=== PATIENT | male | born 1940 | race Caucasian/White ===

== ENCOUNTER 2017-08-27 14:52 | Inpatient (IN) | payer MEDICARE, BC ==
[~2017-08-27] VITALS: Ht 177.8 cm; Wt 95.5 kg
[~2017-08-27 14:52] MED LIST: ALBU2.5V7 NEB; ASPI-1053 PO; CHLO25TA2 PO; CITA40TA22 PO; GUAI100L97 PO; IRBE150T51 PO; NITR0.4T51 SL; OMEP20CA10 PO; ROSU40TA PO
[2017-08-27] MEDS ORDERED: furosemide 40mg/4ml inj IV ONE (15:05)
[2017-08-27 15:16] LABS: ABG BASE EXCESS 2.7 mmol/L (-2.0-3.0); ABG HCO3 26.5 mmol/L (22.0-26.0); ABG OXYGEN SATURATION 97.3 % (95-98); ABG PCO2 (T) 37.9 mmHg (35.0-48.0); ABG PH (T) 7.462 (7.350-7.450); ABG PO2 (T) 98.6 mmHg (83-108); FCOHb 0.6 % (0.5-1.5); FLOW 3 L/min; FMetHb 0.2 % (0.3-1.12); FO2Hb 96.5 % (94-100); RESPIRATORY RATE (OBSERVED) 27 b/min; TOTAL HEMOGLOBIN 13.9 G/dl (14.0-18.0)
[2017-08-27] MEDS ORDERED: CELE-193 PO (15:32)
[2017-08-27 15:34] LABS: BASOPHILS % (AUTO) 0.3 % (0-1); EOSINOPHILS # (AUTO) 0.2 X10'3 (0-0.9); EOSINOPHILS % (AUTO) 1.5 % (0-6); HEMATOCRIT 39.9 % (42.0-52.0); HEMOGLOBIN 13.4 g/dl (14.0-17.9); LYMPHOCYTES # (AUTO) 1.9 X10'3 (1.1-4.8); LYMPHOCYTES % (AUTO) 14.4 % (21-51); MEAN CORPUSCULAR HGB CONC 33.5 % (33.0-36.5); MEAN CORPUSCULAR VOLUME 92.6 FL (78-98); MONOCYTES # (AUTO) 1.3 X10'3 (0-0.9); MONOCYTES % (AUTO) 9.8 % (2-12); NEUTROPHILS # (AUTO) 9.9 X10'3 (1.8-7.7); PLATELET COUNT 316 X10'3 (140-440); RED BLOOD COUNT 4.31 X10'6 (4.70-6.10); RED CELL DISTRIBUTION WIDTH 14.7 % (11.5-14.5); WHITE BLOOD COUNT 13.4 X10'3 (4.5-11.0)
[2017-08-27] MEDS ORDERED: azithromycin/NS 500mg/250ml 250 ML IV ONE (15:50)
[2017-08-27] MEDS ORDERED: CefTRIAXone 2gm/NS 100ml IVPB 100 ML IV ONE (15:50)
[2017-08-27 15:56] LABS: ALANINE AMINOTRANSFERASE 42 U/L (12-78); ALBUMIN 2.9 G/DL (3.4-5.0); ALBUMIN/GLOBULIN RATIO 0.7 (1.1-1.5); ALKALINE PHOSPHATASE 78 IU/L (46-116); ANION GAP 8 (8-16); ASPARTATE AMINO TRANSFERASE 41 U/L (10-37); BILIRUBIN,TOTAL 0.4 MG/DL (0.1-1.0); BLOOD UREA NITROGEN 26 MG/DL (7-18); BUN/CREATININE RATIO 16.3 (5.4-32.0); CALCIUM 9.4 MG/DL (8.5-10.1); CHLORIDE 102 MMOL/L (99-107); GLUCOSE 170 MG/DL (70-104); POTASSIUM 3.4 MMOL/L (3.5-5.1); SODIUM 140 MMOL/L (135-145); TOTAL CARBON DIOXIDE 29.8 MMOL/L (24-32); TOTAL PROTEIN 7.3 G/DL (6.4-8.2); eGFR 42 ML/MIN
[2017-08-27] MEDS ORDERED: magnesium hydroxide 30ml (MOM) UD suspension PO PRN (16:45)
[2017-08-27] MEDS ORDERED: potassium Cl 40MEQ/NS 500ml 500 ML IV PRN (16:45)
[2017-08-27] MEDS ORDERED: ondansetron/PF 4mg/2ml inj IV PRN (16:45)
[2017-08-27] MEDS ORDERED: magnesium 2GM in 50ml NS 50 ML IV PRN (16:45)
[2017-08-27] MEDS ORDERED: magnesium Cl slow-release 64mg tablet PO PRN (16:45)
[2017-08-27] MEDS ORDERED: acetaminophen 325mg tablet PO PRN (16:45)
[2017-08-27] MEDS ORDERED: ipratropium/albuterol 3ml nebule NEB PRN (16:45)
[2017-08-27] MEDS: K and/or MAG REPLACEMENT MC SCH (16:45)
[2017-08-27] MEDS ORDERED: magnesium 4gm in 100ml NS 100 ML IV PRN (16:45)
[2017-08-27] MEDS ORDERED: potassium Cl 20 mEq SR tablet PO PRN (16:45)
[2017-08-27] MEDS ORDERED: mag hydrox/Alum hydrox/simeth 30ml oral suspension PO PRN (16:45)
[2017-08-27 17:25] LABS: ABG BASE EXCESS 5.3 mmol/L (-2.0-3.0); ABG OXYGEN SATURATION 95.3 % (95-98); ABG PCO2 (T) 39.9 mmHg (35.0-48.0); ABG PO2 (T) 75.2 mmHg (83-108); ALLEN'S TEST Positive; FCOHb 0.6 % (0.5-1.5); FLOW 1 L/min; FMetHb 0.1 % (0.3-1.12); FO2Hb 94.6 % (94-100); PATIENT TEMPERATURE 37.3; TOTAL HEMOGLOBIN 14.5 G/dl (14.0-18.0)
[2017-08-27] MEDS ORDERED: LORazepam 2 mg/ml vial IV ONE (17:50)
[2017-08-27] MEDS: normal saline 1000ml 1,000 ML IV SCH (19:19)
[2017-08-27] MEDS: potassium Cl 40MEQ/NS 500ml 500 ML IV PRN (19:53)
[2017-08-27] MEDS: ipratropium/albuterol 3ml nebule NEB SCH ×2 (20:16→23:00)
[2017-08-28] MEDS: ipratropium/albuterol 3ml nebule NEB SCH ×4 (01:00→20:45)
[2017-08-28] MEDS: normal saline 1000ml 1,000 ML IV SCH ×2 (05:12→15:31)
[2017-08-28 05:56] LABS: BASOPHILS # (AUTO) 0.1 X10'3 (0-0.2); BASOPHILS % (AUTO) 0.4 % (0-1); EOSINOPHILS # (AUTO) 0.1 X10'3 (0-0.9); HEMATOCRIT 37.8 % (42.0-52.0); HEMOGLOBIN 12.9 g/dl (14.0-17.9); LYMPHOCYTES # (AUTO) 1.4 X10'3 (1.1-4.8); LYMPHOCYTES % (AUTO) 11.8 % (21-51); MEAN CORPUSCULAR HEMOGLOBIN 31.3 PG (27.0-31.0); MEAN CORPUSCULAR HGB CONC 34.2 % (33.0-36.5); MEAN CORPUSCULAR VOLUME 91.7 FL (78-98); MONOCYTES # (AUTO) 1.5 X10'3 (0-0.9); NEUTROPHILS # (AUTO) 8.7 X10'3 (1.8-7.7); NEUTROPHILS % (AUTO) 73.8 % (42-75); PLATELET COUNT 318 X10'3 (140-440); RED BLOOD COUNT 4.12 X10'6 (4.70-6.10); RED CELL DISTRIBUTION WIDTH 14.9 % (11.5-14.5); WHITE BLOOD COUNT 11.8 X10'3 (4.5-11.0)
[2017-08-28 06:26] LABS: ALANINE AMINOTRANSFERASE 44 U/L (12-78); ALBUMIN 2.8 G/DL (3.4-5.0); ALBUMIN/GLOBULIN RATIO 0.7 (1.1-1.5); ALKALINE PHOSPHATASE 64 IU/L (46-116); ANION GAP 9 (8-16); ASPARTATE AMINO TRANSFERASE 46 U/L (10-37); BILIRUBIN,TOTAL 0.3 MG/DL (0.1-1.0); BLOOD UREA NITROGEN 25 MG/DL (7-18); BUN/CREATININE RATIO 15.7 (5.4-32.0); CALCIUM 9.2 MG/DL (8.5-10.1); CHLORIDE 104 MMOL/L (99-107); CREATININE 1.59 MG/DL (0.60-1.10); GLUCOSE 121 MG/DL (70-104); MAGNESIUM 1.7 MG/DL (1.5-2.4); POTASSIUM 3.2 MMOL/L (3.5-5.1); SODIUM 145 MMOL/L (135-145); TOTAL CARBON DIOXIDE 32.3 MMOL/L (24-32); TOTAL PROTEIN 7.1 G/DL (6.4-8.2); eGFR 42 ML/MIN
[2017-08-28 08:00] VITALS: BP 137/71
[2017-08-28] MEDS: K and/or MAG REPLACEMENT MC SCH (08:00)
[2017-08-28] MEDS: azithromycin 250mg tablet PO SCH (08:57)
[2017-08-28] MEDS: enoxaparin 40mg/0.4ml syringe SQ SCH (08:58)
[2017-08-28] MEDS: cefTRIAXone 1g/NS 100ml IVPB 100 ML IV SCH (09:36)
[2017-08-28] MEDS ORDERED: hydrocortisone 1% cream 28gm TP PRN (10:50)
[2017-08-28 11:00] VITALS: BP 136/84
[2017-08-28] MEDS: potassium Cl 40MEQ/NS 500ml 500 ML IV PRN (12:33)
[2017-08-28 15:00] VITALS: BP 146/81
[2017-08-28] MEDS ORDERED: albuterol 2.5 MG/3 ML nebule NEB PRN (15:15)
[2017-08-28 16:45] LABS: ABG BASE EXCESS 2.4 mmol/L (-2.0-3.0); ABG HCO3 26.9 mmol/L (22.0-26.0); ABG OXYGEN SATURATION 96.7 % (95-98); ABG PCO2 (T) 41.2 mmHg (35.0-48.0); ABG PH (T) 7.432 (7.350-7.450); ABG PO2 (T) 91.4 mmHg (83-108); ALLEN'S TEST Positive; FLOW 3 L/min; FMetHb 0.2 % (0.3-1.12); FO2Hb 96.5 % (94-100); TOTAL HEMOGLOBIN 13.1 G/dl (14.0-18.0)
[2017-08-28 19:00] VITALS: BP 128/83
[2017-08-28] MEDS: nystatin 15 GM powder TP SCH (20:26)
[2017-08-28] MEDS: atorvastatin 20mg tablet PO SCH (20:27)
[2017-08-28] MEDS: lactobacillus rhamnosus 10,000 MMU CELLS/CAPSULE PO SCH (20:27)
[2017-08-28] MEDS: citalopram 20mg tablet PO SCH (20:27)
[2017-08-28] MEDS: aspirin 81mg tab.chew PO SCH (20:27)
[2017-08-28] MEDS ORDERED: CITALOPRAM HYDROBROMIDE PO SCH (21:00)
[2017-08-28] MEDS ORDERED: ROSUVASTATIN CALCIUM PO SCH (21:00)
[2017-08-28 23:00] VITALS: BP 149/71
[2017-08-29] MEDS ORDERED: LORazepam 2 mg/ml vial IV PRN (00:35)
[2017-08-29] MEDS ORDERED: acetaminophen 325mg tablet PO PRN (00:35)
[2017-08-29 03:00] VITALS: BP 156/70
[2017-08-29 06:00] VITALS: BP 122/75
[2017-08-29 07:21] LABS: BASOPHILS % (AUTO) 0.4 % (0-1); EOSINOPHILS # (AUTO) 0.5 X10'3 (0-0.9); EOSINOPHILS % (AUTO) 4.9 % (0-6); HEMATOCRIT 33.7 % (42.0-52.0); HEMOGLOBIN 11.5 g/dl (14.0-17.9); LYMPHOCYTES # (AUTO) 1.4 X10'3 (1.1-4.8); LYMPHOCYTES % (AUTO) 15.7 % (21-51); MEAN CORPUSCULAR HEMOGLOBIN 31.4 PG (27.0-31.0); MEAN CORPUSCULAR VOLUME 92.2 FL (78-98); MEAN PLATELET VOLUME 7.3 FL (7.4-10.4); MONOCYTES # (AUTO) 1.1 X10'3 (0-0.9); MONOCYTES % (AUTO) 12.3 % (2-12); NEUTROPHILS # (AUTO) 6.1 X10'3 (1.8-7.7); NEUTROPHILS % (AUTO) 66.7 % (42-75); PLATELET COUNT 305 X10'3 (140-440); RED BLOOD COUNT 3.66 X10'6 (4.70-6.10); RED CELL DISTRIBUTION WIDTH 14.8 % (11.5-14.5); WHITE BLOOD COUNT 9.2 X10'3 (4.5-11.0)
[2017-08-29 07:31] LABS: ALANINE AMINOTRANSFERASE 76 U/L (12-78); ALBUMIN 2.5 G/DL (3.4-5.0); ALBUMIN/GLOBULIN RATIO 0.7 (1.1-1.5); ALKALINE PHOSPHATASE 60 IU/L (46-116); ANION GAP 6 (8-16); ASPARTATE AMINO TRANSFERASE 77 U/L (10-37); BILIRUBIN,TOTAL 0.3 MG/DL (0.1-1.0); BLOOD UREA NITROGEN 24 MG/DL (7-18); BUN/CREATININE RATIO 15.4 (5.4-32.0); CALCIUM 9.1 MG/DL (8.5-10.1); CHLORIDE 105 MMOL/L (99-107); CREATININE 1.56 MG/DL (0.60-1.10); GLUCOSE 113 MG/DL (70-104); MAGNESIUM 1.6 MG/DL (1.5-2.4); POTASSIUM 3.1 MMOL/L (3.5-5.1); SODIUM 144 MMOL/L (135-145); TOTAL PROTEIN 6.3 G/DL (6.4-8.2); eGFR 43 ML/MIN
[2017-08-29] MEDS: cefTRIAXone 1g/NS 100ml IVPB 100 ML IV SCH (07:56)
[2017-08-29] MEDS: lactobacillus rhamnosus 10,000 MMU CELLS/CAPSULE PO SCH ×2 (07:56→20:54)
[2017-08-29] MEDS: azithromycin 250mg tablet PO SCH (07:57)
[2017-08-29] MEDS: enoxaparin 40mg/0.4ml syringe SQ SCH (07:57)
[2017-08-29] MEDS: pantoprazole 40mg Tablet.DR PO SCH (07:57)
[2017-08-29] MEDS: nystatin 15 GM powder TP SCH ×3 (07:58→21:05)
[2017-08-29] MEDS: chlorthalidone 25mg tablet PO SCH (07:58)
[2017-08-29] MEDS ORDERED: non-formulary drug (Omeprazole 1 CAP) PO SCH (08:00)
[2017-08-29] MEDS: ipratropium/albuterol 3ml nebule NEB SCH ×4 (08:19→20:19)
[2017-08-29] MEDS: K and/or MAG REPLACEMENT MC SCH (09:48)
[2017-08-29] MEDS: potassium Cl 20 mEq SR tablet PO PRN ×3 (09:48→22:21)
[2017-08-29 11:00] VITALS: BP 137/71
[2017-08-29 15:00] VITALS: BP 126/64
[2017-08-29] MEDS: normal saline 1000ml 1,000 ML IV SCH (17:10)
[2017-08-29 19:00] VITALS: BP 141/82
[2017-08-29] MEDS ORDERED: temazepam 15mg capsule PO ONE (20:35)
[2017-08-29] MEDS: citalopram 20mg tablet PO SCH (20:53)
[2017-08-29] MEDS: atorvastatin 20mg tablet PO SCH (20:53)
[2017-08-29] MEDS: aspirin 81mg tab.chew PO SCH (21:05)
[2017-08-29 23:00] VITALS: BP 136/70
[2017-08-30] MEDS: ipratropium/albuterol 3ml nebule NEB SCH ×5 (00:14→14:16)
[2017-08-30 03:00] VITALS: BP 125/67
[2017-08-30 06:35] VITALS: BP 124/70
[2017-08-30 06:37] LABS: BASOPHILS # (AUTO) 0.1 X10'3 (0-0.2); BASOPHILS % (AUTO) 0.7 % (0-1); EOSINOPHILS # (AUTO) 0.4 X10'3 (0-0.9); EOSINOPHILS % (AUTO) 4.9 % (0-6); HEMATOCRIT 36.3 % (42.0-52.0); HEMOGLOBIN 12.4 g/dl (14.0-17.9); LYMPHOCYTES # (AUTO) 1.4 X10'3 (1.1-4.8); LYMPHOCYTES % (AUTO) 15.7 % (21-51); MEAN CORPUSCULAR HEMOGLOBIN 31.4 PG (27.0-31.0); MEAN CORPUSCULAR HGB CONC 34.2 % (33.0-36.5); MEAN CORPUSCULAR VOLUME 92.1 FL (78-98); MEAN PLATELET VOLUME 7.1 FL (7.4-10.4); MONOCYTES % (AUTO) 11.1 % (2-12); NEUTROPHILS # (AUTO) 5.8 X10'3 (1.8-7.7); NEUTROPHILS % (AUTO) 67.6 % (42-75); PLATELET COUNT 310 X10'3 (140-440); RED BLOOD COUNT 3.94 X10'6 (4.70-6.10); WHITE BLOOD COUNT 8.6 X10'3 (4.5-11.0)
[2017-08-30 07:09] LABS: ALANINE AMINOTRANSFERASE 86 U/L (12-78); ALBUMIN 2.5 G/DL (3.4-5.0); ALBUMIN/GLOBULIN RATIO 0.7 (1.1-1.5); ALKALINE PHOSPHATASE 62 IU/L (46-116); ANION GAP 8 (8-16); ASPARTATE AMINO TRANSFERASE 72 U/L (10-37); BILIRUBIN,TOTAL 0.4 MG/DL (0.1-1.0); BLOOD UREA NITROGEN 18 MG/DL (7-18); BUN/CREATININE RATIO 14.2 (5.4-32.0); CALCIUM 9.6 MG/DL (8.5-10.1); CHLORIDE 103 MMOL/L (99-107); CREATININE 1.27 MG/DL (0.60-1.10); GLUCOSE 103 MG/DL (70-104); MAGNESIUM 1.4 MG/DL (1.5-2.4); POTASSIUM 3.5 MMOL/L (3.5-5.1); SODIUM 142 MMOL/L (135-145); TOTAL CARBON DIOXIDE 31.3 MMOL/L (24-32); TOTAL PROTEIN 6.3 G/DL (6.4-8.2); eGFR 55 ML/MIN
[2017-08-30] MEDS ORDERED: CefTRIAXone/D5W-Rocephin 1gm 50 ML IV SCH (08:00)
[2017-08-30] MEDS: lactobacillus rhamnosus 10,000 MMU CELLS/CAPSULE PO SCH (09:47)
[2017-08-30] MEDS: chlorthalidone 25mg tablet PO SCH (09:47)
[2017-08-30] MEDS: pantoprazole 40mg Tablet.DR PO SCH (09:47)
[2017-08-30] MEDS: enoxaparin 40mg/0.4ml syringe SQ SCH (09:48)
[2017-08-30] MEDS: azithromycin 250mg tablet PO SCH (09:48)
[2017-08-30] MEDS: normal saline 1000ml 1,000 ML IV SCH (09:56)
[2017-08-30] MEDS: nystatin 15 GM powder TP SCH (10:01)
[2017-08-30 11:00] VITALS: BP 123/72
[2017-08-30] MEDS ORDERED: AZI25OT PO (14:08)
[2017-08-30 14:16] LABS: ABG BASE EXCESS 4.4 mmol/L (-2.0-3.0); ABG HCO3 28.9 mmol/L (22.0-26.0); ABG OXYGEN SATURATION 96.5 % (95-98); ABG PCO2 (T) 42.7 mmHg (35.0-48.0); ABG PH (T) 7.448 (7.350-7.450); ABG PO2 (T) 85.9 mmHg (83-108); ALLEN'S TEST Positive; FCOHb 0.2 % (0.5-1.5); FLOW 2 L/min; FMetHb 0.1 % (0.3-1.12); FO2Hb 96.2 % (94-100); RESPIRATORY RATE (OBSERVED) 20 b/min; TOTAL HEMOGLOBIN 13.3 G/dl (14.0-18.0)
[2017-08-30 15:00] VITALS: BP 135/62
[2017-08-31] MEDS ORDERED: CefTRIAXone inj 1,000 MG in normal saline 100ml IV soln 100 ML IV SCH (08:00)
== END 2017-08-30 16:30 | disposition home or self-care (01) | DRG 871 ==
LOC: ER 14:52 → ED HOLD 16:44 → PCU 3S 08-28 08:00
PROVIDERS: ADMIT Family Medicine; ATTEND Internal Medicine
PROC: 5A09357 Assistance with Respiratory Ventilation, Less than 24 Consecutive Hours, Continuous Positive Airway Pressure (ICD-10-PCS; principal; 2017-08-27)
DX: A41.9 Sepsis, unspecified organism (principal); J96.01 Acute respiratory failure with hypoxia; G93.41 Metabolic encephalopathy; J18.1 Lobar pneumonia, unspecified organism; I13.0 Hypertensive heart and chronic kidney disease with heart failure and stage 1 through stage 4 chronic kidney disease, or unspecified chronic kidney disease; S22.42XA Multiple fractures of ribs, left side, initial encounter for closed fracture; I50.30 Unspecified diastolic (congestive) heart failure; J44.0 Chronic obstructive pulmonary disease with (acute) lower respiratory infection; Z99.81 Dependence on supplemental oxygen; J44.1 Chronic obstructive pulmonary disease with (acute) exacerbation; F41.9 Anxiety disorder, unspecified; F03.90 Unspecified dementia, unspecified severity, without behavioral disturbance, psychotic disturbance, mood disturbance, and anxiety; N18.9 Chronic kidney disease, unspecified; E78.5 Hyperlipidemia, unspecified; E87.6 Hypokalemia; F32.9 Major depressive disorder, single episode, unspecified; I25.10 Atherosclerotic heart disease of native coronary artery without angina pectoris; N40.0 Benign prostatic hyperplasia without lower urinary tract symptoms; Z95.1 Presence of aortocoronary bypass graft; Z88.5 Allergy status to narcotic agent; Z79.899 Other long term (current) drug therapy; Z87.891 Personal history of nicotine dependence; Z82.49 Family history of ischemic heart disease and other diseases of the circulatory system; Z83.3 Family history of diabetes mellitus; Z81.8 Family history of other mental and behavioral disorders; Z84.89 Family history of other specified conditions; Y92.89 Other specified places as the place of occurrence of the external cause
CPT/HCPCS: 36415; 36600; 71045; 80053; 82803; 83605; 83735; 83880; 84145; 85018; 85025; 87040; 87502; 87503; 93005; 93306; 94640; 94660; 94760; 96365; 96375; 99291; A6213; A6250; J0456; J0696; J1650; J1940; J2060; J3480; J7030

== ENCOUNTER 2018-05-23 14:48 | Inpatient (IN) | payer MEDICARE, BC ==
[~2018-05-23] VITALS: Ht 185.4 cm; Wt 91.5 kg
[~2018-05-23 14:48] MED LIST changes: +AZI25OT PO; -GUAI100L97 PO; -IRBE150T51 PO
[2018-05-23 15:39] LABS: BASOPHILS % (AUTO) 0 % (0-1); EOSINOPHILS % (AUTO) 0.1 % (0-6); HEMATOCRIT 46.1 % (42.0-52.0); HEMOGLOBIN 15.1 g/dl (14.0-17.9); LYMPHOCYTES # (AUTO) 0.5 X10'3 (1.1-4.8); LYMPHOCYTES % (AUTO) 2.6 % (21-51); MEAN CORPUSCULAR HEMOGLOBIN 31.1 PG (27.0-31.0); MEAN CORPUSCULAR HGB CONC 32.8 % (33.0-36.5); MEAN CORPUSCULAR VOLUME 94.6 FL (78-98); MEAN PLATELET VOLUME 6.4 FL (7.4-10.4); MONOCYTES # (AUTO) 0.1 X10'3 (0-0.9); MONOCYTES % (AUTO) 0.4 % (2-12); NEUTROPHILS # (AUTO) 17.9 X10'3 (1.8-7.7); NEUTROPHILS % (AUTO) 96.9 % (42-75); PLATELET COUNT 438 X10'3 (140-440); RED BLOOD COUNT 4.87 X10'6 (4.70-6.10); RED CELL DISTRIBUTION WIDTH 14.1 % (11.5-14.5); WHITE BLOOD COUNT 18.5 X10'3 (4.5-11.0)
[2018-05-23] MEDS ORDERED: normal saline 1000ML IV soln IV ONE (15:45)
[2018-05-23] MEDS ORDERED: levoFLOXACIN-Levaquin 750MG/D5 150 ML IV ONE (15:50)
[2018-05-23] MEDS ORDERED: acetaminophen 325mg rectal suppository RC ONE (15:55)
[2018-05-23 16:01] LABS: PARTIAL THROMBOPLASTIN TIME 26 SECONDS (22-32); PROTHROMBIN TIME 10.3 SECONDS (9.0-12.0)
[2018-05-23 16:08] LABS: ALANINE AMINOTRANSFERASE 25 U/L (12-78); ALBUMIN 3.1 G/DL (3.4-5.0); ALBUMIN/GLOBULIN RATIO 0.7 (1.1-1.5); ALKALINE PHOSPHATASE 80 IU/L (46-116); ANION GAP 11 (8-16); ASPARTATE AMINO TRANSFERASE 27 U/L (10-37); BILIRUBIN,TOTAL 0.5 MG/DL (0.1-1.0); BLOOD UREA NITROGEN 19 MG/DL (7-18); BUN/CREATININE RATIO 12.9 (5.4-32.0); CALCIUM 9.9 MG/DL (8.5-10.1); CHLORIDE 96 MMOL/L (99-107); CREATININE 1.47 MG/DL (0.60-1.10); GLUCOSE 114 MG/DL (70-104); SODIUM 137 MMOL/L (135-145); TOTAL CARBON DIOXIDE 30.2 MMOL/L (24-32); TOTAL PROTEIN 7.6 G/DL (6.4-8.2); eGFR 46 ML/MIN
[2018-05-23] MEDS ORDERED: potassium 10mEq/100ml NS w/LIDOcaine (10mg/bag) IV ONE (16:25)
[2018-05-23] MEDS ORDERED: magnesium Cl slow-release 64mg tablet PO PRN (17:25)
[2018-05-23] MEDS ORDERED: magnesium 4gm in 100ml NS 100 ML IV PRN (17:25)
[2018-05-23] MEDS ORDERED: mag hydrox/Alum hydrox/simeth 30ml oral suspension PO PRN (17:25)
[2018-05-23] MEDS ORDERED: acetaminophen 325mg tablet PO PRN ×2 (17:25)
[2018-05-23] MEDS ORDERED: ondansetron/PF 4mg/2ml inj IV PRN (17:25)
[2018-05-23] MEDS ORDERED: magnesium hydroxide 30ml (MOM) UD suspension PO PRN (17:25)
[2018-05-23] MEDS ORDERED: diphenhydrAMINE 25mg capsule PO PRN (17:25)
[2018-05-23] MEDS ORDERED: morphine 2 MG/ML inj. syringe IV PRN ×2 (17:25)
[2018-05-23] MEDS ORDERED: potassium Cl 20 mEq SR tablet PO PRN (17:25)
[2018-05-23] MEDS ORDERED: potassium Cl 40MEQ/NS 500ml 500 ML IV PRN ×2 (17:25)
[2018-05-23] MEDS ORDERED: CELE-193 PO (18:05)
[2018-05-23 18:15] LABS: CLARITY,URINE CLEAR (Clear); COLOR,URINE YELLOW (Yellow); GLUCOSE, URINE NEGATIVE (Neg); KETONES,URINE NEGATIVE (Neg); LEUKOCYTE ESTERASE ,URINE SMALL (Neg); NITRITES, URINE NEGATIVE (Neg); OCCULT BLOOD,URINE LARGE (Neg); PROTEIN,URINE 30 mg/dl (Neg); UROBILINOGEN,URINE 0.2 E.U/dL (0.2-1.0)
[2018-05-23 18:16] LABS: UA COLLECTION TYPE STRAIGHT CATH
[2018-05-23] MEDS: K and/or MAG REPLACEMENT MC SCH (18:16)
[2018-05-23 18:22] LABS: WBC,URINE 0-4 /HPF (0-4)
[2018-05-23 18:23] LABS: BACTERIA,URINE FEW /HPF (Neg); MUCUS STRANDS NONE SEEN /LPF (Neg); SQUAMOUS EPITHELIAL CELL,UR NONE SEEN /LPF (FEW)
[2018-05-23] MEDS: piperacillin/tazo 3.375gm/50ml 50 ML IV SCH ×2 (18:32→20:40)
[2018-05-23] MEDS: normal saline 1000ml 1,000 ML IV SCH (18:46)
[2018-05-23 20:30] VITALS: BP 100/53
[2018-05-23] MEDS: citalopram 20mg tablet PO SCH (20:36)
[2018-05-23] MEDS: aspirin 81mg tab.chew PO SCH (20:36)
[2018-05-23] MEDS: atorvastatin 20mg tablet PO SCH (20:38)
[2018-05-23] MEDS: heparin, porcine 5000 units/ml vial SQ SCH (20:39)
[2018-05-23] MEDS ORDERED: CITALOPRAM HYDROBROMIDE PO SCH (21:00)
[2018-05-23] MEDS ORDERED: ROSUVASTATIN CALCIUM PO SCH (21:00)
[2018-05-23 23:00] VITALS: BP 106/58
[2018-05-24] MEDS: normal saline 1000ml 1,000 ML IV SCH ×3 (01:57→14:10)
[2018-05-24] MEDS: piperacillin/tazo 3.375gm/50ml 50 ML IV SCH ×4 (01:57→20:29)
[2018-05-24 03:00] VITALS: BP 104/55
[2018-05-24 03:53] LABS: ALANINE AMINOTRANSFERASE 17 U/L (12-78); ALBUMIN 2.2 G/DL (3.4-5.0); ALBUMIN/GLOBULIN RATIO 0.6 (1.1-1.5); ALKALINE PHOSPHATASE 54 IU/L (46-116); ANION GAP 8 (8-16); ASPARTATE AMINO TRANSFERASE 20 U/L (10-37); BILIRUBIN,TOTAL 0.8 MG/DL (0.1-1.0); BLOOD UREA NITROGEN 18 MG/DL (7-18); CALCIUM 8.6 MG/DL (8.5-10.1); CHLORIDE 102 MMOL/L (99-107); CREATININE 1.29 MG/DL (0.60-1.10); GLUCOSE 134 MG/DL (70-104); POTASSIUM 3.1 MMOL/L (3.5-5.1); SODIUM 138 MMOL/L (135-145); TOTAL CARBON DIOXIDE 27.9 MMOL/L (24-32); TOTAL PROTEIN 5.6 G/DL (6.4-8.2); eGFR 54 ML/MIN
[2018-05-24 03:55] LABS: MAGNESIUM 1.5 MG/DL (1.5-2.4)
[2018-05-24 04:05] LABS: BASOPHILS % (AUTO) 0.1 % (0-1); EOSINOPHILS % (AUTO) 0 % (0-6); HEMATOCRIT 37.2 % (42.0-52.0); HEMOGLOBIN 12.3 g/dl (14.0-17.9); LYMPHOCYTES # (AUTO) 0.3 X10'3 (1.1-4.8); LYMPHOCYTES % (AUTO) 1.1 % (21-51); MEAN CORPUSCULAR HEMOGLOBIN 31.1 PG (27.0-31.0); MEAN CORPUSCULAR HGB CONC 33.1 % (33.0-36.5); MEAN CORPUSCULAR VOLUME 93.9 FL (78-98); MEAN PLATELET VOLUME 7.4 FL (7.4-10.4); MONOCYTES # (AUTO) 0.5 X10'3 (0-0.9); NEUTROPHILS # (AUTO) 26.5 X10'3 (1.8-7.7); NEUTROPHILS % (AUTO) 96.8 % (42-75); PLATELET COUNT 247 X10'3 (140-440); RED BLOOD COUNT 3.96 X10'6 (4.70-6.10); RED CELL DISTRIBUTION WIDTH 14.6 % (11.5-14.5)
[2018-05-24 04:11] LABS: WHITE BLOOD COUNT 27.4 X10'3 (4.5-11.0)
[2018-05-24 07:05] LABS: PLATELET ESTIMATE NORMAL; TOTAL CELLS COUNTED 100; TOXIC VACUOLATION 1+
[2018-05-24 07:25] VITALS: BP 104/51
[2018-05-24] MEDS: pantoprazole 40mg Tablet.DR PO SCH (07:54)
[2018-05-24] MEDS: heparin, porcine 5000 units/ml vial SQ SCH ×2 (07:54→20:31)
[2018-05-24] MEDS ORDERED: non-formulary drug (Omeprazole 1 CAP) PO SCH (08:00)
[2018-05-24] MEDS: K and/or MAG REPLACEMENT MC SCH (08:00)
[2018-05-24] MEDS: vancomycin/NS 1 GM ADD-VANTAGE 250 ML X 1 DOSE IV SCH ×2 (09:44→21:18)
[2018-05-24 12:19] VITALS: BP 115/91
[2018-05-24] MEDS: potassium Cl 20 mEq SR tablet PO PRN ×3 (13:05→20:31)
[2018-05-24] MEDS: chlorthalidone 25mg tablet PO SCH (14:29)
[2018-05-24 15:00] VITALS: BP 116/84
[2018-05-24 19:00] VITALS: BP 122/59
[2018-05-24] MEDS ORDERED: vancomycin/NS 1 GM ADD-VANTAGE 250 ML X 1 DOSE IV SCH (19:00)
[2018-05-24] MEDS: atorvastatin 20mg tablet PO SCH (20:31)
[2018-05-24] MEDS: citalopram 20mg tablet PO SCH (20:31)
[2018-05-24] MEDS: aspirin 81mg tab.chew PO SCH (20:32)
[2018-05-24 22:00] VITALS: BP 122/64
[2018-05-25] MEDS: normal saline 1000ml 1,000 ML IV SCH ×3 (00:10→20:10)
[2018-05-25 02:00] VITALS: BP 113/58
[2018-05-25] MEDS: piperacillin/tazo 3.375gm/50ml 50 ML IV SCH ×4 (02:13→20:20)
[2018-05-25 06:00] VITALS: BP 108/64
[2018-05-25] MEDS: K and/or MAG REPLACEMENT MC SCH (08:00)
[2018-05-25] MEDS: pantoprazole 40mg Tablet.DR PO SCH (08:27)
[2018-05-25] MEDS: chlorthalidone 25mg tablet PO SCH (08:27)
[2018-05-25 09:04] LABS: BASOPHILS % (AUTO) 0.1 % (0-1); EOSINOPHILS # (AUTO) 0.1 X10'3 (0-0.9); EOSINOPHILS % (AUTO) 0.7 % (0-6); HEMATOCRIT 37.7 % (42.0-52.0); HEMOGLOBIN 12.2 g/dl (14.0-17.9); LYMPHOCYTES # (AUTO) 0.9 X10'3 (1.1-4.8); LYMPHOCYTES % (AUTO) 7.8 % (21-51); MEAN CORPUSCULAR HGB CONC 32.4 % (33.0-36.5); MEAN CORPUSCULAR VOLUME 95.6 FL (78-98); MEAN PLATELET VOLUME 7.4 FL (7.4-10.4); MONOCYTES # (AUTO) 0.9 X10'3 (0-0.9); MONOCYTES % (AUTO) 7.7 % (2-12); NEUTROPHILS # (AUTO) 9.8 X10'3 (1.8-7.7); NEUTROPHILS % (AUTO) 83.7 % (42-75); PLATELET COUNT 268 X10'3 (140-440); RED BLOOD COUNT 3.94 X10'6 (4.70-6.10); RED CELL DISTRIBUTION WIDTH 14.9 % (11.5-14.5); WHITE BLOOD COUNT 11.7 X10'3 (4.5-11.0)
[2018-05-25 09:19] LABS: ALANINE AMINOTRANSFERASE 15 U/L (12-78); ALBUMIN 2.2 G/DL (3.4-5.0); ALBUMIN/GLOBULIN RATIO 0.6 (1.1-1.5); ALKALINE PHOSPHATASE 54 IU/L (46-116); ANION GAP 8 (8-16); ASPARTATE AMINO TRANSFERASE 25 U/L (10-37); BILIRUBIN,TOTAL 0.4 MG/DL (0.1-1.0); BLOOD UREA NITROGEN 17 MG/DL (7-18); BUN/CREATININE RATIO 12.5 (5.4-32.0); CALCIUM 8.8 MG/DL (8.5-10.1); CHLORIDE 103 MMOL/L (99-107); CREATININE 1.36 MG/DL (0.60-1.10); GLUCOSE 129 MG/DL (70-104); MAGNESIUM 1.7 MG/DL (1.5-2.4); PHOSPHORUS 2.5 MG/DL (2.3-4.5); POTASSIUM 3.7 MMOL/L (3.5-5.1); SODIUM 138 MMOL/L (135-145); TOTAL CARBON DIOXIDE 27.3 MMOL/L (24-32); TOTAL PROTEIN 5.8 G/DL (6.4-8.2); eGFR 51 ML/MIN
[2018-05-25] MEDS: furosemide 20 MG/2 ML vial IV SCH (09:29)
[2018-05-25] MEDS: vancomycin/NS 1 GM ADD-VANTAGE 250 ML X 1 DOSE IV SCH ×2 (09:29→19:00)
[2018-05-25] MEDS: heparin, porcine 5000 units/ml vial SQ SCH ×2 (09:30→20:20)
[2018-05-25 11:00] VITALS: BP 121/69
[2018-05-25 15:46] VITALS: BP 120/57
[2018-05-25 18:30] VITALS: BP 130/68
[2018-05-25] MEDS ORDERED: VANCOMYCIN LEVEL IV ONE (18:30)
[2018-05-25] MEDS: aspirin 81mg tab.chew PO SCH (20:22)
[2018-05-25] MEDS: citalopram 20mg tablet PO SCH (20:23)
[2018-05-25] MEDS: atorvastatin 20mg tablet PO SCH (20:25)
[2018-05-25 22:00] VITALS: BP 121/54
[2018-05-26] MEDS: piperacillin/tazo 3.375gm/50ml 50 ML IV SCH ×4 (01:42→19:38)
[2018-05-26 02:00] VITALS: BP 126/64
[2018-05-26 05:15] LABS: BASOPHILS % (AUTO) 0.3 % (0-1); EOSINOPHILS # (AUTO) 0.4 X10'3 (0-0.9); EOSINOPHILS % (AUTO) 3.8 % (0-6); HEMATOCRIT 37.8 % (42.0-52.0); HEMOGLOBIN 12.4 g/dl (14.0-17.9); LYMPHOCYTES # (AUTO) 0.9 X10'3 (1.1-4.8); LYMPHOCYTES % (AUTO) 9.5 % (21-51); MEAN CORPUSCULAR HEMOGLOBIN 31.2 PG (27.0-31.0); MEAN CORPUSCULAR HGB CONC 32.7 % (33.0-36.5); MEAN CORPUSCULAR VOLUME 95.2 FL (78-98); MEAN PLATELET VOLUME 7.2 FL (7.4-10.4); MONOCYTES # (AUTO) 0.8 X10'3 (0-0.9); MONOCYTES % (AUTO) 8.1 % (2-12); NEUTROPHILS # (AUTO) 7.7 X10'3 (1.8-7.7); NEUTROPHILS % (AUTO) 78.3 % (42-75); PLATELET COUNT 300 X10'3 (140-440); RED BLOOD COUNT 3.97 X10'6 (4.70-6.10); RED CELL DISTRIBUTION WIDTH 14.7 % (11.5-14.5); WHITE BLOOD COUNT 9.8 X10'3 (4.5-11.0)
[2018-05-26 05:25] LABS: ALANINE AMINOTRANSFERASE 25 U/L (12-78); ALBUMIN 2.2 G/DL (3.4-5.0); ALBUMIN/GLOBULIN RATIO 0.6 (1.1-1.5); ALKALINE PHOSPHATASE 46 IU/L (46-116); ANION GAP 5 (8-16); ASPARTATE AMINO TRANSFERASE 27 U/L (10-37); BILIRUBIN,TOTAL 0.4 MG/DL (0.1-1.0); BLOOD UREA NITROGEN 12 MG/DL (7-18); CALCIUM 8.7 MG/DL (8.5-10.1); CHLORIDE 101 MMOL/L (99-107); CREATININE 1.34 MG/DL (0.60-1.10); GLUCOSE 113 MG/DL (70-104); MAGNESIUM 1.5 MG/DL (1.5-2.4); PHOSPHORUS 2.3 MG/DL (2.3-4.5); SODIUM 139 MMOL/L (135-145); TOTAL CARBON DIOXIDE 33.2 MMOL/L (24-32); eGFR 51 ML/MIN
[2018-05-26 05:27] LABS: POTASSIUM 2.7 MMOL/L (3.5-5.1)
[2018-05-26] MEDS ORDERED: potassium Cl oral solution 20 MEQ/15 ML PO PRN ×2 (05:40→05:45)
[2018-05-26] MEDS: potassium Cl oral solution 20 MEQ/15 ML PO PRN ×2 (05:59→12:10)
[2018-05-26 06:00] VITALS: BP 132/91
[2018-05-26] MEDS: normal saline 1000ml 1,000 ML IV SCH (06:10)
[2018-05-26] MEDS: vancomycin/NS 1 GM ADD-VANTAGE 250 ML X 1 DOSE IV SCH (07:00)
[2018-05-26] MEDS: K and/or MAG REPLACEMENT MC SCH (07:53)
[2018-05-26] MEDS: furosemide 20 MG/2 ML vial IV SCH (08:41)
[2018-05-26] MEDS: ipratropium/albuterol 3ml nebule NEB PRN ×2 (09:00→20:30)
[2018-05-26 11:00] VITALS: BP 116/59
[2018-05-26] MEDS: vancomycin inj 500 MG in normal saline 100ml IV soln 100 ML IV SCH ×2 (12:10→20:41)
[2018-05-26] MEDS: chlorthalidone 25mg tablet PO SCH (12:10)
[2018-05-26] MEDS: pantoprazole 40mg Tablet.DR PO SCH (12:10)
[2018-05-26] MEDS: heparin, porcine 5000 units/ml vial SQ SCH ×2 (12:11→19:39)
[2018-05-26 15:00] VITALS: BP 107/60
[2018-05-26 18:00] VITALS: BP 105/49
[2018-05-26] MEDS: citalopram 20mg tablet PO SCH (19:38)
[2018-05-26] MEDS: aspirin 81mg tab.chew PO SCH (19:38)
[2018-05-26] MEDS: lactobacillus rhamnosus 10,000 MMU CELLS/CAPSULE PO SCH (19:38)
[2018-05-26] MEDS: atorvastatin 20mg tablet PO SCH (19:38)
[2018-05-26 22:00] VITALS: BP 115/58
[2018-05-27] MEDS: piperacillin/tazo 3.375gm/50ml 50 ML IV SCH ×4 (01:51→20:11)
[2018-05-27 02:01] VITALS: BP 121/67
[2018-05-27 05:21] LABS: HEMATOCRIT 38.2 % (42.0-52.0); HEMOGLOBIN 13.1 g/dl (14.0-17.9); MEAN CORPUSCULAR HEMOGLOBIN 32.3 PG (27.0-31.0); MEAN CORPUSCULAR HGB CONC 34.2 % (33.0-36.5); MEAN CORPUSCULAR VOLUME 94.5 FL (78-98); PLATELET COUNT 278 X10'3 (140-440); RED BLOOD COUNT 4.04 X10'6 (4.70-6.10); RED CELL DISTRIBUTION WIDTH 13.6 % (11.5-14.5); WHITE BLOOD COUNT 8.9 X10'3 (4.5-11.0)
[2018-05-27 05:22] LABS: BASOPHILS # (AUTO) 0.1 X10'3 (0-0.2); BASOPHILS % (AUTO) 0.9 % (0-1); EOSINOPHILS # (AUTO) 0.2 X10'3 (0-0.9); EOSINOPHILS % (AUTO) 2.4 % (0-6); LYMPHOCYTES # (AUTO) 1.4 X10'3 (1.1-4.8); LYMPHOCYTES % (AUTO) 16.1 % (21-51); MEAN PLATELET VOLUME 7.4 FL (7.4-10.4); MONOCYTES # (AUTO) 0.8 X10'3 (0-0.9); MONOCYTES % (AUTO) 8.8 % (2-12); NEUTROPHILS # (AUTO) 6.4 X10'3 (1.8-7.7); NEUTROPHILS % (AUTO) 71.8 % (42-75)
[2018-05-27 06:08] LABS: MAGNESIUM 1.4 MG/DL (1.5-2.4); PHOSPHORUS 2.6 MG/DL (2.3-4.5)
[2018-05-27 06:22] LABS: ALANINE AMINOTRANSFERASE 25 U/L (12-78); ALBUMIN 2.3 G/DL (3.4-5.0); ALBUMIN/GLOBULIN RATIO 0.6 (1.1-1.5); ALKALINE PHOSPHATASE 58 IU/L (46-116); ANION GAP 8 (8-16); ASPARTATE AMINO TRANSFERASE 32 U/L (10-37); BILIRUBIN,TOTAL 0.4 MG/DL (0.1-1.0); BLOOD UREA NITROGEN 8 MG/DL (7-18); BUN/CREATININE RATIO 5.7 (5.4-32.0); CALCIUM 9.2 MG/DL (8.5-10.1); CHLORIDE 96 MMOL/L (99-107); CREATININE 1.41 MG/DL (0.60-1.10); GLUCOSE 101 MG/DL (70-104); SODIUM 138 MMOL/L (135-145); TOTAL CARBON DIOXIDE 33.8 MMOL/L (24-32); TOTAL PROTEIN 6.2 G/DL (6.4-8.2); eGFR 48 ML/MIN
[2018-05-27] MEDS ORDERED: magnesium 4gm in 100ml NS 100 ML IV PRN (06:55)
[2018-05-27] MEDS ORDERED: potassium Cl 20 mEq SR tablet PO PRN (06:55)
[2018-05-27] MEDS ORDERED: potassium Cl 40MEQ/NS 500ml 500 ML IV PRN ×2 (06:55)
[2018-05-27 06:57] LABS: POTASSIUM 2.7 MMOL/L (3.5-5.1)
[2018-05-27 07:00] VITALS: BP 124/67
[2018-05-27] MEDS: heparin, porcine 5000 units/ml vial SQ SCH ×2 (07:37→20:12)
[2018-05-27] MEDS: potassium Cl 20 mEq SR tablet PO PRN ×3 (07:38→20:12)
[2018-05-27] MEDS: lactobacillus rhamnosus 10,000 MMU CELLS/CAPSULE PO SCH ×2 (07:38→20:12)
[2018-05-27] MEDS: pantoprazole 40mg Tablet.DR PO SCH (07:39)
[2018-05-27] MEDS: chlorthalidone 25mg tablet PO SCH (07:40)
[2018-05-27] MEDS: K and/or MAG REPLACEMENT MC SCH (08:00)
[2018-05-27] MEDS: vancomycin inj 500 MG in normal saline 100ml IV soln 100 ML IV SCH (10:28)
[2018-05-27 11:00] VITALS: BP 116/68
[2018-05-27] MEDS: furosemide 20 MG/2 ML vial IV SCH (11:05)
[2018-05-27] MEDS: magnesium Cl slow-release 64mg tablet PO PRN ×2 (12:33→20:12)
[2018-05-27] MEDS: ipratropium/albuterol 3ml nebule NEB SCH ×2 (14:42→20:31)
[2018-05-27 15:00] VITALS: BP 122/55
[2018-05-27 19:00] VITALS: BP 126/60
[2018-05-27] MEDS ORDERED: VANCOMYCIN LEVEL IV ONE (19:30)
[2018-05-27] MEDS: citalopram 20mg tablet PO SCH (20:11)
[2018-05-27] MEDS: atorvastatin 20mg tablet PO SCH (20:11)
[2018-05-27] MEDS: aspirin 81mg tab.chew PO SCH (20:11)
[2018-05-27] MEDS: methylPREDNISolone sod succ/PF 40mg inj. IV SCH (20:12)
[2018-05-27 23:00] VITALS: BP 147/69
[2018-05-28] MEDS: piperacillin/tazo 3.375gm/50ml 50 ML IV SCH ×2 (01:22→09:00)
[2018-05-28 03:00] VITALS: BP 146/82
[2018-05-28 05:38] LABS: BASOPHILS % (AUTO) 0.3 % (0-1); EOSINOPHILS % (AUTO) 0.2 % (0-6); HEMATOCRIT 42.6 % (42.0-52.0); HEMOGLOBIN 14.4 g/dl (14.0-17.9); LYMPHOCYTES # (AUTO) 1.1 X10'3 (1.1-4.8); LYMPHOCYTES % (AUTO) 14.6 % (21-51); MEAN CORPUSCULAR HEMOGLOBIN 31.8 PG (27.0-31.0); MEAN CORPUSCULAR HGB CONC 33.7 % (33.0-36.5); MEAN CORPUSCULAR VOLUME 94.3 FL (78-98); MEAN PLATELET VOLUME 7.2 FL (7.4-10.4); MONOCYTES # (AUTO) 0.1 X10'3 (0-0.9); MONOCYTES % (AUTO) 1.2 % (2-12); NEUTROPHILS # (AUTO) 6.5 X10'3 (1.8-7.7); NEUTROPHILS % (AUTO) 83.7 % (42-75); PLATELET COUNT 315 X10'3 (140-440); RED BLOOD COUNT 4.52 X10'6 (4.70-6.10); RED CELL DISTRIBUTION WIDTH 14.6 % (11.5-14.5); WHITE BLOOD COUNT 7.7 X10'3 (4.5-11.0)
[2018-05-28 05:58] LABS: ALANINE AMINOTRANSFERASE 33 U/L (12-78); ALBUMIN 2.7 G/DL (3.4-5.0); ALBUMIN/GLOBULIN RATIO 0.6 (1.1-1.5); ALKALINE PHOSPHATASE 64 IU/L (46-116); ANION GAP 9 (8-16); ASPARTATE AMINO TRANSFERASE 40 U/L (10-37); BILIRUBIN,TOTAL 0.5 MG/DL (0.1-1.0); BLOOD UREA NITROGEN 9 MG/DL (7-18); BUN/CREATININE RATIO 6.5 (5.4-32.0); CALCIUM 10.1 MG/DL (8.5-10.1); CHLORIDE 96 MMOL/L (99-107); CREATININE 1.39 MG/DL (0.60-1.10); GLUCOSE 156 MG/DL (70-104); MAGNESIUM 1.7 MG/DL (1.5-2.4); SODIUM 136 MMOL/L (135-145); TOTAL CARBON DIOXIDE 30.6 MMOL/L (24-32); TOTAL PROTEIN 7.3 G/DL (6.4-8.2); eGFR 49 ML/MIN
[2018-05-28 06:00] VITALS: BP 146/71
[2018-05-28] MEDS: ipratropium/albuterol 3ml nebule NEB SCH ×4 (07:58→19:47)
[2018-05-28] MEDS: K and/or MAG REPLACEMENT MC SCH (08:00)
[2018-05-28] MEDS: chlorthalidone 25mg tablet PO SCH (08:00)
[2018-05-28] MEDS: pantoprazole 40mg Tablet.DR PO SCH (08:45)
[2018-05-28] MEDS: furosemide 20 MG/2 ML vial IV SCH (08:59)
[2018-05-28] MEDS: methylPREDNISolone sod succ/PF 40mg inj. IV SCH ×2 (08:59→20:55)
[2018-05-28] MEDS ORDERED: vancomycin inj 500 MG in normal saline 100ml IV soln 100 ML IV SCH (09:00)
[2018-05-28] MEDS: heparin, porcine 5000 units/ml vial SQ SCH ×2 (09:00→20:55)
[2018-05-28] MEDS: lactobacillus rhamnosus 10,000 MMU CELLS/CAPSULE PO SCH ×2 (09:00→20:55)
[2018-05-28 11:00] VITALS: BP 123/67
[2018-05-28 15:00] VITALS: BP 129/72
[2018-05-28] MEDS ORDERED: amox tr/potassium clavulanate 875/125mg TAB PO SCH (17:30)
[2018-05-28 18:00] VITALS: BP 127/72
[2018-05-28] MEDS ORDERED: diphenhydrAMINE 25mg capsule PO PRN (20:40)
[2018-05-28] MEDS: citalopram 20mg tablet PO SCH (20:55)
[2018-05-28] MEDS: aspirin 81mg tab.chew PO SCH (20:55)
[2018-05-28] MEDS: atorvastatin 20mg tablet PO SCH (20:55)
[2018-05-28 22:00] VITALS: BP 116/71
[2018-05-29 02:00] VITALS: BP 113/67
[2018-05-29 06:00] VITALS: BP 140/79
[2018-05-29] MEDS: ipratropium/albuterol 3ml nebule NEB SCH ×2 (07:03→10:42)
[2018-05-29] MEDS: pantoprazole 40mg Tablet.DR PO SCH (07:30)
[2018-05-29] MEDS: K and/or MAG REPLACEMENT MC SCH (08:00)
[2018-05-29] MEDS: lactobacillus rhamnosus 10,000 MMU CELLS/CAPSULE PO SCH (08:51)
[2018-05-29] MEDS: chlorthalidone 25mg tablet PO SCH (08:58)
[2018-05-29] MEDS: methylPREDNISolone sod succ/PF 40mg inj. IV SCH (08:58)
[2018-05-29] MEDS: furosemide 20 MG/2 ML vial IV SCH (08:59)
[2018-05-29] MEDS: heparin, porcine 5000 units/ml vial SQ SCH (08:59)
[2018-05-29 11:00] VITALS: BP 135/75
[2018-05-29] MEDS ORDERED: IPRA3AMP9 NEB (12:15)
[2018-05-29] MEDS ORDERED: LEVO500T89 PO (12:15)
[2018-05-29] MEDS ORDERED: VALA-7 CORPAK (12:15)
[2018-05-29] MEDS ORDERED: DIPH-423 PO (12:15)
[2018-05-31] MEDS ORDERED: VANCOMYCIN LEVEL IV ONE (08:30)
== END 2018-05-29 15:30 | disposition home health service (06) | DRG 871 ==
LOC: ER 14:49 → ED HOLD 17:21 → PCU 3S 19:45 → SUR 3N 05-29 13:15 → PCU 3S 05-29 13:34
PROVIDERS: ADMIT Family Medicine; ATTEND Internal Medicine
DX: A41.9 Sepsis, unspecified organism (principal); J96.01 Acute respiratory failure with hypoxia; I21.A1 Myocardial infarction type 2; E43 Unspecified severe protein-calorie malnutrition; G93.40 Encephalopathy, unspecified; N17.9 Acute kidney failure, unspecified; J44.1 Chronic obstructive pulmonary disease with (acute) exacerbation; F32.9 Major depressive disorder, single episode, unspecified; E78.5 Hyperlipidemia, unspecified; E87.6 Hypokalemia; F03.90 Unspecified dementia, unspecified severity, without behavioral disturbance, psychotic disturbance, mood disturbance, and anxiety; I25.10 Atherosclerotic heart disease of native coronary artery without angina pectoris; B02.9 Zoster without complications; I12.9 Hypertensive chronic kidney disease with stage 1 through stage 4 chronic kidney disease, or unspecified chronic kidney disease; K21.9 Gastro-esophageal reflux disease without esophagitis; N18.9 Chronic kidney disease, unspecified; N40.0 Benign prostatic hyperplasia without lower urinary tract symptoms; Z66 Do not resuscitate; Z23 Encounter for immunization; Z74.01 Bed confinement status; Z95.1 Presence of aortocoronary bypass graft; Z99.81 Dependence on supplemental oxygen; Z88.5 Allergy status to narcotic agent; Z79.899 Other long term (current) drug therapy; Z87.891 Personal history of nicotine dependence; Z82.49 Family history of ischemic heart disease and other diseases of the circulatory system; Z82.3 Family history of stroke; Z83.3 Family history of diabetes mellitus; Z84.89 Family history of other specified conditions; Z68.26 Body mass index [BMI] 26.0-26.9, adult
CPT/HCPCS: 36415; 71045; 80053; 80202; 81001; 83605; 83735; 83880; 84100; 84132; 84145; 84484; 85025; 85610; 85730; 87040; 87070; 87077; 87088; 92616; 93005; 93306; 94640; 94760; 96365; 97110; 97116; 97162; 97530; 99291; G0378; J1644; J1940; J1956; J2543; J2920; J3370; J3480; J7030; Q0163